=== PATIENT | female | born 1940 | race African-American/Black ===

== ENCOUNTER 2019-01-28 20:14 | Emergency (ER) | payer OTHER ==
[~2019-01-28] VITALS: Ht 170.2 cm; Wt 68.0 kg
[2019-01-28] MEDS ORDERED: ALBUTEROL SULF 2.5 MG/0.5ML(0.5%) NEB SOLN NEB ONE (20:45)
[2019-01-28] MEDS ORDERED: IPRATROPIUM BROM 0.5 MG/2.5ML INH SOL NEB ONE (20:45)
[2019-01-28 22:24] LABS: Basophils # (auto) 0.2 uL; Basophils % (auto) 1.5 % (0.0-2.0); Eosinophils # (auto) 0 uL; Eosinophils % (auto) 0.2 % (0.0-7.0); Hematocrit 45.5 % (36.0-46.0); Hemoglobin 15.4 g/dL (12.2-16.2); Lymphocytes # (auto) 1.7 uL; Lymphocytes % (auto) 16.4 % (10.0-50.0); Mean Corpuscular Hemoglobin 29.8 pg (28.0-32.0); Mean Corpuscular Hgb Conc. 33.8 g/dL (32.0-36.0); Mean Corpuscular Volume 88.2 fL (80.0-100.0); Monocytes # (auto) 1.2 uL; Monocytes % (auto) 10.9 % (0.0-12.0); Neutrophils # (auto) 7.5 uL; Platelet Count (auto) 272 10^3/uL (140-450); Red Blood Cells 5.16 10^6/uL (4.0-5.20); Red Cell Distribution Width 13.5 % (11.8-14.3); White Blood Cell 10.6 10^3/uL (4.4-10.8)
[2019-01-28 22:41] LABS: Urine Bacteria NONE SEEN /hpf (None Seen); Urine Blood Negative /uL (Negative); Urine Mucus FEW (None Seen); Urine Specific Gravity 1.009 (1.001-1.035); Urine WBC 3 /hpf (0 - 5)
[2019-01-28 22:42] LABS: Alanine Aminotransferase 33 U/L (13-56); Albumin 3.8 g/dL (3.4-5.0); Anion Gap 8 (5-15); Aspartate Aminotransferase 24 U/L (15-37); BUN/Creatinine Ratio 15.2; Blood Urea Nitrogen 12 mg/dL (7-18); Calcium 9.1 mg/dL (8.5-10.1); Carbon Dioxide 22 mmol/L (21-32); Chloride 109 mmol/L (98-107); GFR African American 91 mL/min; GFR Non-African American 75 mL/min; Glucose 218 mg/dL (74-106); Potassium 3.9 mmol/L (3.5-5.1); Sodium 139 mmol/L (136-145)
[2019-01-28 22:47] LABS: Alkaline Phosphatase 94 U/L (45-117); Bilirubin, Total 0.4 mg/dL (0.2-1.0); Total Protein 8.8 g/dL (6.4-8.2)
[2019-01-28] MEDS ORDERED: IOHEXOL 350 MG/ML 100ML IJ ONE (23:29)
[2019-01-29] MEDS ORDERED: IPRATROPIUM BROM 0.5 MG/2.5ML INH SOL NEB ONE (03:15)
[2019-01-29] MEDS ORDERED: ALBUTEROL SULF 2.5 MG/0.5ML(0.5%) NEB SOLN NEB ONE (03:15)
[2019-01-29] MEDS ORDERED: methylPREDNISolone SOD SUCC 125 MG/2 ML VL IV ONE (03:15)
[2019-01-29] MEDS ORDERED: LEVOFLOXACIN 500MG 100 ML IV ONE (05:30)
[2019-01-29 07:54] VITALS: BP 128/74
== END 2019-01-29 08:09 | disposition short-term general hospital (02) ==
LOC: EDBD 20:16 → ER 20:16
DX: J44.1 Chronic obstructive pulmonary disease with (acute) exacerbation (principal); J01.00 Acute maxillary sinusitis, unspecified; E11.9 Type 2 diabetes mellitus without complications; I10 Essential (primary) hypertension; Z95.1 Presence of aortocoronary bypass graft
CPT/HCPCS: 36415; 71045; 71275; 80053; 81001; 82962; 83880; 84484; 85025; 85379; 87804; 93005; 94640; 96365; 96375; 99285; J1956; J2930; J7611; J7644; Q9967

== ENCOUNTER → 2020-12-22 | Emergency (ER) | payer OTHER ==
[~2020-12-22] VITALS: Ht 170.2 cm; Wt 77.1 kg
[2020-12-22 14:17] VITALS: BP 162/72
[2020-12-22 15:03] LABS: Basophils # (auto) 0.1 10 ^3/uL (0-0.2); Basophils % (auto) 1.2 % (0.0-2.0); Eosinophils # (auto) 0.1 10 ^3/uL (0-0.8); Eosinophils % (auto) 0.9 % (0.0-7.0); Hematocrit 48.2 % (36.0-46.0); Hemoglobin 15.8 g/dL (12.2-16.2); Lymphocytes # (auto) 2.9 10 ^3/uL (0.4-5.4); Lymphocytes % (auto) 24.7 % (10.0-50.0); Mean Corpuscular Hemoglobin 29.6 pg (28.0-32.0); Mean Corpuscular Hgb Conc. 32.8 g/dL (32.0-36.0); Mean Corpuscular Volume 90.2 fL (80.0-100.0); Monocytes # (auto) 1.2 10 ^3/uL (0-1.3); Monocytes % (auto) 10.3 % (0.0-12.0); Neutrophils # (auto) 7.4 10 ^3/uL (1.6-8.6); Neutrophils % (auto) 62.9 % (37.0-80.0); Red Blood Cells 5.34 10^6/uL (4.0-5.20); Red Cell Distribution Width 13.4 % (11.8-14.3); White Blood Cell 11.8 10^3/uL (4.4-10.8)
[2020-12-22 15:30] LABS: Chloride 102 mmol/L (98-107); Potassium 4.9 mmol/L (3.5-5.1); Sodium 133 mmol/L (136-145)
[2020-12-22 15:38] LABS: Alanine Aminotransferase 32 U/L (13-56); Albumin 3.8 g/dL (3.4-5.0); Alkaline Phosphatase 113 U/L (45-117); Anion Gap 5 (5-15); Aspartate Aminotransferase 16 U/L (15-37); Bilirubin, Total 0.4 mg/dL (0.2-1.0); Blood Urea Nitrogen 18 mg/dL (7-18); Calcium 9.7 mg/dL (8.5-10.1); Carbon Dioxide 26 mmol/L (21-32); GFR African American 69 mL/min; GFR Non-African American 57 mL/min; Total Protein 8.7 g/dL (6.4-8.2)
[2020-12-22 15:53] LABS: Glucose 449 mg/dL (74-106)
== END | disposition left against medical advice (07) ==
LOC: ER 14:11
DX: R42 Dizziness and giddiness (principal); R73.9 Hyperglycemia, unspecified; Z53.21 Procedure and treatment not carried out due to patient leaving prior to being seen by health care provider
CPT/HCPCS: 36415; 80053; 84484; 85025

== ENCOUNTER 2024-11-14 14:58 | Emergency (ER) | payer OTHER ==
[~2024-11-14] VITALS: Ht 170.2 cm; Wt 80.5 kg
--- NOTE | 2024-11-14 15:23 | ED.PDOC ---
HPI Comments This is a 84 year old female presenting to the ED with chief complaint of SOB. Patient reports that she has been experiencing SOB with associated chest pressure/squeezing pain for the past 3 weeks. Patient relays that she then started to feel generally weak recently, worrying her enough to come into the ED. Patient denies any dizziness, headache, cough, fever, or chills. Chief Complaint: Chest Pain Time Seen by MD: 15:21 Primary Care Provider: ALEXANDER Lester Notes: Nurses Notes, Medications, Allergies Allergies: Coded Allergies: Statins (Verified Allergy, Unknown, 01/28/19) Information Source: Patient Mode of Arrival: Ambulatory Severity: Moderate Timing: Weeks Duration: Since onset Prehospital treatment: None Location: Substernal Radiation: No Radiation Quality: Squeezing, Pressure Onset: At Rest Cardiac Risk Factors: Hyperlipidemia, HTN PE Risk Factors: None Associated Signs and Symptoms: SOB Past Medical History PAST MEDICAL HISTORY: COPD, DM, HTN Past Medical History (Other): Emphysema Surgical History: CABG LAYER OFF History: No Pertinent LAYER OFF History Family History Family History: Reviewed,noncontributory to illness, Unknown Social History Smoker: Non-Smoker Alcohol: Denies ETOH Use Drugs: Denies Drug Use Lives In: Home Constitutional: reports: weakness; denies: chills, diaphoresis, fatigue, fever, malaise, sweats, others EENTM: denies: blurred vision, double vision, ear bleeding, ear discharge, ear drainage, ear pain, ear ringing, eye pain, eye redness, hearing loss, mouth pain, mouth swelling, nasal discharge, nose bleeding, nose congestion, nose pain, photophobia, tearing, throat pain, throat swelling, voice changes, others Respiratory: reports: shortness of breath; denies: cough, hemoptysis, orthopnea, SOB at rest, SOB with excertion, stridor, wheezing, others Cardiovascular: reports: chest pain; denies: dizzy spells, diaphoresis, Dyspnea on exertion, edema, irregular heart beat, left arm pain, lightheadedness, palpitations, PND, syncope, others Gastrointestinal: denies: abdomen distended, abdominal pain, blood streaked bowels, constipated, diarrhea, dysphagia, difficulty swallowing, hematemesis, melena, nausea, poor appetite, poor fluid intake, rectal bleeding, rectal pain, vomiting, others Genitourinary: denies: abnormal vagina bleeding, burning, dyspareunia, dysuria, flank pain, frequency, hematuria, incontinence, pain, , vagina discharge, urgency, others Neurological: denies: dizziness, fainting, headache, left sided numbness, left sided weakness, numbness, paresthesia, pre-existing deficit, right sided numbness, right sided weakness, seizure, speech problems, tingling, tremors, weakness, others Musculoskeletal: denies: back pain, gout, joint pain, joint swelling, muscle pain, muscle stiffness, neck pain, others Allergic/Immunocompromised: denies: Difficulty Healing, Frequent Infections, Hives, Itching, others Hematologic/Lymphatic: denies: anemia, blood clots, easy bleeding, easy bruising, swollen glands, others Endocrine: denies: excessive hunger, excessive sweating, excessive thirst, excessive urination, flushing, intolerance to cold, intolerance to heat, unexplained weight gain, unexplained weight loss, others Psychiatric: denies: anxiety, bipolar disorder, depression, hopeless, panic disorder, schizophrenia, sleepless, suicidal, others All Other Systems: Reviewed and Negative Physical Exam General Appearance: Moderate Distress ([id number] distress at time of evaluation.), Normal HEENT: Normal ENT Inspection, Pharynx Normal, TMs Normal Neck: Full Range of Motion, Non-Tender, Normal, Normal Inspection Respiratory: Chest Non-Tender, No Accessory Muscle Use, No Respiratory Distress, Wheezing (Patchy wheezing appreciated right middle lobe and left upper lobe) Cardiovascular: No Edema, No JVD, No Murmur, No Gallop, Normal Peripheral Pulses, Regular Rate/Rhythm Breast Exam: Deferred Gastrointestinal: No Organomegaly, Non Tender, No Pulsatile Mass, Normal Bowel Sounds, Soft Genitalia: Deferred Pelvic: Deferred Rectal: Deferred Extremities: No calf tenderness, Normal capillary refill, Normal inspection, Normal range of motion, Non-tender, No pedal edema Musculoskeletal : Apperance: Normal Neurologic: Alert, Normal Affect, Normal Mood Cerebellar Function: NOT DONE Reflexes: NOT DONE Skin: Dry, Normal Color, Warm Lymphatic: No Adenopathy Was a procedure done? Was a procedure done?: No CP Differential Dx Differential Diagnosis: A-fib, Atrial Dysrhythmia, AV Block 1st Degree, [place], Pulmonary Embolus Differential Diagnosis: CHF Differential Diagnosis: Angina, Pneumonia X-Ray, Labs, Meds, VS Vital Signs Date Time Temp Pulse Resp B/P (MAP) Pulse Ox O2 Delivery O2 Flow Rate FiO2 11/15/24 00:36 101 16 96 Room Air* 0 21 11/15/24 00:36 98.3 101 16 171/74 (106) 96 98.3 11/14/24 20:24 98.1 100 18 174/70 (104) 94 98.1 11/14/24 16:08 104 11/14/24 15:12 97.6 100 16 161/66 92 97.6 11/14/24 15:03 99 Lab Test 11/14/24 18:40 11/14/24 16:50 11/14/24 15:39 Range/Units Troponin I High Sensitivity < 3 L < 3 L < 3 L </=34 ng/L White Blood Count 13.7 H 4.4-10.8 10^3/uL Red Blood Count 4.54 4.0-5.20 10^6/uL Hemoglobin 13.7 12.2-16.2 g/dL Hematocrit 41.5 36.0-46.0 % Mean Corpuscular Volume 91.4 80.0-100.0 fL Mean Corpuscular Hemoglobin 30.2 28.0-32.0 pg Mean Corpuscular Hemoglobin Concent 33.0 32.0-36.0 g/dL Red Cell Distribution Width 13.6 11.8-14.3 % Platelet Count 313 140-450 10^3/uL Mean Platelet Volume 7.2 6.9-10.8 fL Neutrophils (%) (Auto) 65.6 37.0-80.0 % Lymphocytes (%) (Auto) 20.6 10.0-50.0 % Monocytes (%) (Auto) 11.5 0.0-12.0 % Eosinophils (%) (Auto) 1.1 0.0-7.0 % Basophils (%) (Auto) 1.2 0.0-2.0 % Neutrophils # (Auto) 9.0 H 1.6-8.6 10 ^3/uL Lymphocytes # (Auto) 2.8 0.4-5.4 10 ^3/uL Monocytes # (Auto) 1.6 H 0-1.3 10 ^3/uL Eosinophils # (Auto) 0.2 0-0.8 10 ^3/uL Basophils # (Auto) 0.2 0-0.2 10 ^3/uL Nucleated Red Blood Cells 0.1 % D-Dimer, Quantitative 5.46 H 0.0-0.49 mg/L FEU Sodium Level 143 136-145 mmol/L Potassium Level 4.6 3.5-5.1 mmol/L Chloride Level 109 H 98-107 mmol/L Carbon Dioxide Level 23 20-31 mmol/L Anion Gap 11 5-15 Blood Urea Nitrogen 17 9-23 mg/dL Creatinine 0.99 0.550-1.02 mg/dL Glomerular Filtration Rate Calc 56 >90 mL/min BUN/Creatinine Ratio 17.2 10.0-20.0 Serum Glucose 110 H 74-106 mg/dL Calcium Level 9.7 8.7-10.4 mg/dL Total Bilirubin 0.5 0.2-1.0 mg/dL Aspartate Amino Transferase (AST) 75 H 13-40 U/L Alanine Aminotransferase (ALT) 49 H 7-40 U/L Alkaline Phosphatase 112 46-116 U/L B-Type Natriuretic Peptide 26.84 0-100 pg/mL Total Protein 7.4 5.7-8.2 g/dL Albumin 4.4 3.2-4.8 g/dL Current Medications Medications (Trade) Dose Ordered Sig/Jack Route Start Time Stop Time Status Last Admin Albuterol (Ventolin Medneb) 5 mg ONCE ONCE NEB 11/14/24 15:30 11/14/24 15:31 DC 11/14/24 15:50 Ipratropium [place] (Atrovent Medneb) 0.5 mg ONCE ONCE NEB 11/14/24 15:30 11/14/24 15:31 DC 11/14/24 15:50 Dexamethasone Sodium Phosphate (Decadron Injection) 10 mg ONCE ONCE IM 11/14/24 15:30 11/14/24 15:31 DC 11/15/24 00:29 X-Ray, Labs, Meds, VS Comment All studies performed the ED were evaluated by me personally. Serum laboratories revealed a mild leukocytosis. EKG revealed a sinus rhythm with a rate of 99. Borderline right axis deviation and baseline wander was noted. VT interval 129 and QT interval of 344. Chest x-ray revealed some bilateral consolidation indicative of pneumonia. CT study was remarkable for liver and kidney mass concerns that could be cancer related. Discussed the case with Dr. Holger Buchanan at [facility]. Advised on patient presentation as well as laboratory and imaging results. He agreed to accept the patient is a transfer. Authorization number [id number]. Time of 1ST Reevaluation: 00:53 Reevaluation 1ST: Improved Consultation: PCP Patient Education/Counseling: Diagnosis, Treatment Family Education/Counseling: Diagnosis, Treatment, No Family Present SEPSIS Sepsis Screen Date sepsis recognized/suspect: Nov 14, 2024 Time Sepsis recognized/suspect: 1514 Recent Procedure: No On Antibiotic Therapy: No Respiratory Rate >20: No Heart Rate >90: Yes Temp<36 C (96.8 F) or >38.3 C: No SBP <90 or MAP <65 mmHG: No New Acute Mental Status Change: No Is the patient on CPAP, BIPAP,: No Physician Orders Electrocardigram (11/14/24 16:28) Electrocardigram (11/14/24 18:28) Chest Portable (11/14/24 15:27) Urinalysis (11/14/24 15:27) Heplock Iv (11/14/24 ) Ct Angio Chest Contrast (11/14/24 17:28) Vital Signs Date Time Temp Pulse Resp B/P (MAP) Pulse Ox O2 Delivery O2 Flow Rate FiO2 11/15/24 00:36 101 16 96 Room Air* 0 21 11/15/24 00:36 98.3 101 16 171/74 (106) 96 98.3 11/14/24 20:24 98.1 100 18 174/70 (104) 94 98.1 11/14/24 16:08 104 11/14/24 15:12 97.6 100 16 161/66 92 97.6 11/14/24 15:03 99 Laboratory Tests Test 11/14/24 15:39 White Blood Count 13.7 10^3/uL (4.4-10.8) H Medications Medications Dose Ordered Sig/Jack Route Start Time Stop Time Status Last Admin Dose Admin Albuterol 5 mg ONCE ONCE NEB 11/14/24 15:30 11/14/24 15:31 DC 11/14/24 15:50 Dexamethasone Sodium Phosphate 10 mg ONCE ONCE IM 11/14/24 15:30 11/14/24 15:31 DC 11/15/24 00:29 Ipratropium [place] 0.5 mg ONCE ONCE NEB 11/14/24 15:30 11/14/24 15:31 DC 11/14/24 15:50 Departure 1 Departure Time of Disposition: 00:53 Impression: Primary Impression: Pneumonia Additional Impressions: Emphysema lung Liver mass Kidney cysts Disposition: 02 SHORT TERM HOSPITAL Condition: Stable Discharged With: Self Critical Care Note Critical Care Time?: No Stability Stability form required: No Heart Score Heart Score: Heart Score Response (Comments) Value History Highly Suspicious 2 EKG Normal 0 Age >65 2 Risk Factors 1 or 2 risk factors 1 Troponin Normal limit 0 Total 5 I personally scribed for ANGIE ZENDEJAS PAC ([email or web address]) on 11/14/24 at 15:23. Electronically submitted by Keanu Luna ([email or web address]). ANGIE ZENDEJAS PAC Nov 14, 2024 15:23
[2024-11-14 15:50] LABS: Hematocrit 41.5 % (36.0-46.0); Hemoglobin 13.7 g/dL (12.2-16.2); Mean Corpuscular Hemoglobin 30.2 pg (28.0-32.0); Mean Corpuscular Volume 91.4 fL (80.0-100.0); Nucleated Red Blood Cells % 0.1 %
[2024-11-14] MEDS: IPRATROPIUM BROM 0.5 MG/2.5ML INH SOL NEB ONE (15:50)
[2024-11-14] MEDS: ALBUTEROL SULF 2.5 MG/0.5ML(0.5%) NEB SOLN NEB ONE (15:50)
[2024-11-14 16:08] LABS: Albumin 4.4 g/dL (3.2-4.8); Alkaline Phosphatase 112 U/L (46-116); Anion Gap 11 (5-15); BUN/Creatinine Ratio 17.2 (10.0-20.0); Blood Urea Nitrogen 17 mg/dL (9-23); Calcium 9.7 mg/dL (8.7-10.4); Carbon Dioxide 23 mmol/L (20-31); Potassium 4.6 mmol/L (3.5-5.1); Sodium 143 mmol/L (136-145); Total Protein 7.4 g/dL (5.7-8.2)
[2024-11-14 16:09] LABS: Bilirubin, Total 0.5 mg/dL (0.2-1.0)
[2024-11-14 16:10] LABS: Alanine Aminotransferase 49 U/L (7-40); Chloride 109 mmol/L (98-107); Glucose 110 mg/dL (74-106)
--- NOTE | 2024-11-14 16:10 | DVH ---
CHEST RADIOGRAPH Indication: Shortness of breath Technique: XY CHEST PORTABLE COMPARISON: None FINDINGS: The cardiac silhouette is unremarkable. The lungs demonstrate bilateral patchy airspace opacities. Th e pulmonary vasculature is prominent. Possible tiny bilateral pleural effusions. Aortic atherosclero tic disease. Median sternotomy wires. There is no pneumothorax. IMPRESSION: As above
--- NOTE | 2024-11-14 18:00 | ECG ---
[facility] Test Date: 2024-11-14 Test Time: 16:08:10 Pat Name: ORVILLE DYER Department: ED Room: Gender: F Hat Block Bench Hand: juan pablo : 1940 Requested By: ANGIE ZENDEJAS Order Number: [id number] Reading MD: Measurements Intervals [place] Rate: 104 P: 77 DE: 123 QRS: 76 QRSD: 92 T: 75 QT: 341 QTc: 449 Interpretive Statements Sinus tachycardia Low voltage, precordial leads Please click the below link to view image of tracing.
[2024-11-14] MEDS: IOHEXOL 350 MG/ML 100ML IJ ONE (23:31)
--- NOTE | 2024-11-15 00:09 | DVH ---
CTA Chest with intravenous contrast INDICATION: Elevated D-dimer COMPARISON: None TECHNIQUE: Multidetector spiral CTA of the chest was performed of the chest with intravenous contrast . PULMONARY ANGIOGRAPHY PROTOCOL was utilized using a bolus-tracking technique centered on the main p ulmonary artery. Axial, coronal and sagittal multiplanar and MIP reformats were performed. Radiation Dose : 1. Chest: CTDI volume is 16.12 mGy. Dose-length product is 572.59 mGy*cm The dose indicators for CT are the volume Computed Tomography (CT) Dose Index (CTDIvol) and the Dose Length Product (DLP), and are measured in units of mGy and mGy-cm, respectively. These indicators are not patient dose, but values generated from the CT scanner acquisition factors. The report includes radiation exposure data for exposures received during this examination. Findings: Pulmonary arteries: Technical factors allow for assessment of the level of the lobar arteries. No debbie dence of embolism. Central arteries are normal in caliber. Lower neck: Unremarkable. Lungs: Moderate to severe emphysema. No evidence of a focal infectious consolidation, with multiple areas of peripheral linear to branching reticulation present most notable in the left upper lobe. No obvious suspicious pulmonary nodule or mass. Central airways are clear. Pleura: Normal. Heart/Vascular Structures: Normal heart size. No pericardial effusion. Post CABG change. Lymph Nodes: No adenopathy Musculoskeletal: No acute abnormality. Degenerative change of the spine. Uncomplicated sternotomy dai rdware. Soft tissues: Unremarkable. Upper abdomen: Multiple hypoenhancing hepatic masses, largest measuring a proximally 3.3 cm at the do me. Large right renal cystic lesion and several hepatic cystic lesions are incompletely characterized . IMPRESSION: 1. Limited exam. No evidence of pulmonary embolism within the main or lobar arteries. No right heart strain. 2. Moderate to severe emphysema. No acute consolidation or obvious suspicious pulmonary nodule. Out patient follow-up with lung cancer screening may be appropriate. 3. Multiple hepatic masses suspicious for metastatic disease. Indeterminate large right renal cystic lesion. Further workup is recommended on a nonemergent basis.
[2024-11-15 00:36] VITALS: PULSE 101; RESP 16; O2SAT 96
[2024-11-15 02:23] VITALS: BP 141/58; PULSE 101; RESP 18; TEMP 98.5; O2SAT 95
--- NOTE | 2024-11-17 10:46 | ECG ---
[facility] Test Date: 2024-11-14 Test Time: 15:03:03 Pat Name: ORVILLE DYER Department: ED Room: Gender: F Therapeutic Massage Technician: gissel : 1940 Requested By: ANGIE ZENDEJAS Order Number: [id number] Reading MD: Measurements Intervals [employer] Rate: 99 P: 46 NE: 129 QRS: 84 QRSD: 94 T: 62 QT: 344 QTc: 442 Interpretive Statements Sinus rhythm Borderline right axis deviation Low voltage, precordial leads Baseline wander in lead(s) V1 Please click the below link to view image of tracing.
== END 2024-11-15 02:44 | disposition short-term general hospital (02) ==
LOC: ER 14:58
DX: J18.9 Pneumonia, unspecified organism (principal); J43.9 Emphysema, unspecified; R16.0 Hepatomegaly, not elsewhere classified; N28.1 Cyst of kidney, acquired; J44.0 Chronic obstructive pulmonary disease with (acute) lower respiratory infection; E11.9 Type 2 diabetes mellitus without complications; I10 Essential (primary) hypertension
CPT/HCPCS: 36415; 71045; 71275; 80053; 83880; 84484; 85025; 85379; 93005; 94640; 96372; 99285; J1100; Q9967